=== PATIENT | female | born 1965 | race Caucasian/White ===

== ENCOUNTER → 2017-04-14 06:04 | Day surgery (SDC) | payer BC ==
[~2017-04-14 06:04] MED LIST: Buffered Lidocaine 0.9% SYRIN* 5 ML/SYR SYRINGE INTRADERM ONE; Bupivacaine 0.25% SDV* 30 ML ONE; DEXAMETHASONE IVPB ONE; Dexamethasone IV* 4 MG/ML 1 ML (4 MG) ONE; EPHEDrine (Pressors)* 50 MG/ML VIAL ONE; Famotidine IV* 10 MG/ML 2 ML (20 mg) IV ONE; Famotidine IV* 10 MG/ML 2 ML (20 mg) ONE; HYDROcodone/ACETAMIN 5-325 MG* 1 TAB PO PRN; Ketorolac INJ* 30 MG/ML 1 ML VIAL ONE; Lidocaine 2% PF * 5 ML VIAL ONE; Midazolam* 1 MG/ML 2 ML VIAL (2 MG) ONE; NS 0.9% IVPB ONE; Ondansetron INJ* 2 MG/ML VIAL ONE; PROCHLORPERAZINE INJ 5 MG/ML 2 ML VIAL IV PRN; Propofol* 10 MG/ML 20 ML BTL IV PUSH ONE; Scopolamine 1.5 mg* PATCH ONE; Scopolamine 1.5 mg* PATCH TRANSDERM ONE; Scopolamine PATCH Remove* 1 NOTE MISC PATCH OFF ONE; ceFAZolin 2 GM PREMIX (*) 2 GM/50 ML BAG IVPB ONE; fentaNYL* 50 MCG/ML 2 ML VIAL (100 MCG VIAL) ONE; oxyCODONE/Acetamin 5/325 MG* TAB ONE; oxyCODONE/Acetamin 5/325 MG* TAB PO PRN
[2017-04-14] MEDS: fentaNYL* 50 MCG/ML 2 ML VIAL (100 MCG VIAL) IV PRN ×2 (10:56→11:09)
[2017-04-14 12:32] VITALS: BP 118/84
--- NOTE | 2017-04-15 10:48 | OP ---
OPERATIVE REPORT: DATE OF OPERATION: 04/14/17 DATE OF : 69 SURGEON: Bradley Mullen MD. TELEPHONE ANSWERER: ZORAN Weeks An school office assistant was needed for the entirety of the procedure to aid in positioning of the arm and retraction. ANESTHESIOLOGIST: Dr. Lundy. ANESTHESIA: General. PRE-OP DIAGNOSIS: Left thumb ulnar digital nerve mass. POST-OP DIAGNOSIS: Left thumb ulnar digital nerve mass. OPERATIVE PROCEDURE: Excision of left thumb ulnar digital nerve mass with subsequent repair of digital nerve with allograft grafting. 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 It is difficult when any pressure is applied to the area. She would get electric- like pains out to the tip of the thumb and proximal as well. It would become progressively more difficult for her to use the hand normally. 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 I told her that the chance of this being malignant is seemingly rare in the hand. 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 I told that we could observe it or we could attempt to excise it. Given the level of pain and discomfort she has when she uses the thumb, she wanted to have it excised. I told that there was a chance that this would require excision of the nerve and then grafting and that the thumb tip, although without normal sensation preoperatively could be even more numb postoperatively. She understands there is a very remote risk that this malignant. ESTIMATED BLOOD LOSS: 2 mL. COMPLICATIONS: None. 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 It was quite adherent to the surrounding fascicles, much more than a typical Schwannoma, and that we would get a better outcome with full resection and grafting. I said that she will be much less likely to have chronic pain with this. DESCRIPTION OF PROCEDURE: Lidia was seen in the preoperative holding area. The correct site, side, and procedure were identified. We came back to the operating room where the arm was prepped and draped in the usual fashion. A time-out was performed. I began by making a Ellie incision over the mass. The incision extended to just the proximal aspect of the mass and then to the distal aspect of the mass. Dissection was carried down. She would have just a bit of a ganglion cyst on the radial side of the thumb MCP joint, so prior to doing anything with the ulnar side of the finger, I went ahead and just quickly excised that and sent that off as a specimen. I then came ulnar and identified the full extent of the mass. The underlying digital artery looked normal and intact. The tendons were all normal appearing. I mobilized the mass circumferentially. I then brought in the microscope and I opened up the nerve proximal to the mass. I then tried to trace the fascicles out distally. They were very enveloped and difficult to trace through the mass. It was really impossible to dissect fascicles out through the very adherent mass. Ultimately, I thought she would have a much less chance of developing neuroma and she would have less pain if I fully excise the area and then grafted the nerve and we waited for healing and return of sensation. She already had abnormal sensation on that tip of the thumb preoperatively. I, therefore, took my tongue depressor and my sharp 15 blade and I trimmed the end of the nerve back sharply just proximal and distal to the involved area. I then placed a 3 mm Avance nerve connector on the distal nerve and the proximal nerve. I then took a 2-3 mm Avance nerve allograft and sewed this first to the inside of the proximal Avance nerve connector and then measured the graft and trimmed it appropriately, the gap was about 2.5 cm and then placed the distal end of the graft into the distal nerve connector. Everything was secured to the nerve connectors with 9-0 nylon sutures that were tied in mattress fashion over the top of the connector. There was a 1 mm gap left between each coaptation. At this point, everything was looking good and healthy and clean. I irrigated out the wound copiously. The skin was closed with 4-0 nylon suture. I took a clean unused hypodermic needle and came well proximal to the surgical area and placed a block to anesthetize the thumb. The wound was dressed with Xeroform, 4x4, sterile Webril, and a thumb spica splint out at the tip of the thumb was applied. Tourniquet was deflated. It had been used at 250 mmHg throughout the procedure. The hand pinked up immediately. She was woken up and taken to the recovery room in stable condition. [id number]/[facility] #: [id number] ZANE
== END | disposition home or self-care (01) ==
LOC: OR 06:04
PROVIDERS: ATTEND Orthopaedic Surgery Hand Surgery
DX: D36.12 Benign neoplasm of peripheral nerves and autonomic nervous system, upper limb, including shoulder (principal); M67.442 Ganglion, left hand; J45.909 Unspecified asthma, uncomplicated
CPT/HCPCS: 88304; 88305; A9270-GY; C1713; J0690; J1100; J1885; J2250; J2405; J2704; J3010